=== PATIENT | male | born 1980 | race Caucasian/White ===

== ENCOUNTER 2018-06-23 16:25 | Inpatient (IN) | payer OTHER ==
[~2018-06-23] VITALS: Ht 177.8 cm; Wt 97.0 kg
[2018-06-23 17:21] LABS: BASOPHILS # (AUTO) 0.04 x10^3/uL (0-0.1); BASOPHILS % (AUTO) 1 % (0-1); EOSINOPHILS # (AUTO) 0.04 x10^3/uL (0-0.4); EOSINOPHILS % (AUTO) 1 % (1-7); LYMPHOCYTES # (AUTO) 1.01 x10^3/uL (1-3.4); LYMPHOCYTES % (AUTO) 12 % (22-44); MD NO; MEAN CORPUSCULAR HEMOGLOBIN 31.1 pg (27.5-34.5); MEAN CORPUSCULAR HGB CONC 34.6 g/dL (33.2-36.2); MEAN PLATELET VOLUME 9.4 fL (7.4-10.4); MONOCYTES # (AUTO) 0.52 x10^3/uL (0.2-0.8); MONOCYTES % (AUTO) 6 % (2-9); NEUTROPHILS # (AUTO) 7.12 x10^3/uL (1.8-6.8); NEUTROPHILS % (AUTO) 82 % (42-75); PLATELET COUNT 210 x10^3/uL (130-400); RED BLOOD COUNT 5.14 x10^6/uL (4.38-5.82)
[2018-06-23 17:27] LABS: ALANINE AMINOTRANSFERASE 42 U/L (12-78); ALBUMIN 4.3 g/dL (3.4-5.0); ANION GAP 12 mmol/L (5-15); CALCIUM 8.9 mg/dL (8.5-10.1); CHLORIDE 101 mmol/L (98-107); CREATININE 2.17 mg/dL (0.7-1.3)
[2018-06-23 17:30] LABS: ALKALINE PHOSPHATASE 65 U/L (45-117); BILIRUBIN,TOTAL 0.9 mg/dL (0.2-1.0)
[2018-06-23] MEDS ORDERED: LABETALOL 20 MG/4 ML ONE (17:38)
[2018-06-23] MEDS ORDERED: SODIUM CHLORIDE FLUSH 10ML SYR IVF ONE (18:00)
[2018-06-23] MEDS ORDERED: NS + 40MEQ KCL 1,000 ML IV ONE ×2 (18:00→18:14)
[2018-06-23] MEDS ORDERED: POTASSIUM CHLORIDE 20 MEQ TAB.ER.PRT PO ONE (18:00)
[2018-06-23] MEDS ORDERED: LABETALOL 5MG/ML, 20ML IVPush ONE (18:00)
[2018-06-23 18:03] LABS: TROPONIN I 0.049 ng/mL (0.000-0.045)
[2018-06-23] MEDS ORDERED: POTASSIUM CHLORIDE 20 MEQ TAB.ER.PRT ONE (18:14)
[2018-06-23] MEDS ORDERED: ASPIRIN 81 MG TABLET CHEW PO ONE (18:30)
[2018-06-23] MEDS ORDERED: hydrALAzine 20 MG/ML, 1ML ONE (18:47)
[2018-06-23] MEDS ORDERED: ASPIRIN 81 MG TABLET CHEW ONE (18:47)
[2018-06-23] MEDS ORDERED: SODIUM CHLORIDE FLUSH 10ML SYR IVF PRN (19:00)
[2018-06-23] MEDS ORDERED: hydrALAzine 20 MG/ML, 1ML IV ONE (19:00)
[2018-06-23] MEDS ORDERED: LABETALOL 5MG/ML, 20ML IVPush PRN (21:00)
[2018-06-23] MEDS ORDERED: ONDANSETRON 2MG/ML, 2ML IVPush PRN (21:00)
[2018-06-23] MEDS ORDERED: morphine SULFATE 10 MG/ML, 1ML IVPush PRN (21:00)
[2018-06-23] MEDS ORDERED: DOCUSATE 100 MG CAPSULE PO PRN (21:00)
[2018-06-23] MEDS ORDERED: ACETAMINOPHEN 325 MG TABLET PO PRN (21:00)
[2018-06-23] MEDS ORDERED: OXYcodone IR 5MG TABLET PO PRN (21:00)
[2018-06-23] MEDS ORDERED: POTASSIUM CHLORIDE 40 MEQ in SODIUM CHLORIDE 0.9% 500 ML IV ONE (21:00)
[2018-06-23] MEDS ORDERED: PROMETHAZINE 25 MG/ML, 1ML IM PRN (21:00)
[2018-06-23] MEDS ORDERED: ONDANSETRON ODT 4 MG PO PRN (21:00)
[2018-06-23] MEDS ORDERED: POLYETHYLENE GLYCOL 17 GM PACKET PO PRN (21:00)
[2018-06-23] MEDS ORDERED: BISACODYL 10 MG SUPP PR PRN (21:00)
[2018-06-23] MEDS: ISOSORBIDE DINITRATE 10 MG TABLET PO SCH (21:30)
[2018-06-23] MEDS: CARVEDILOL 6.25 MG TABLET PO SCH (21:30)
[2018-06-23 21:32] LABS: FREE T4 (FREE THYROXINE) 1.21 ng/dL (0.76-1.46); THYROID STIMULATING HORMONE 1.26 mIU/L (0.358-3.740)
[2018-06-23 21:34] VITALS: BP 219/138
[2018-06-23] MEDS: hydrALAzine 20 MG/ML, 1ML IVPush PRN (21:39)
[2018-06-23 21:45] LABS: HEMOGLOBIN A1C 5.2 % (4.2-6.3)
[2018-06-23 22:19] VITALS: BP 160/93
[2018-06-23 22:23] LABS: MICROSCOPIC AUTO
[2018-06-23 22:25] LABS: CULTURE INDICATED? NO
[2018-06-23 22:33] LABS: TROPONIN I 0.069 ng/mL (0.000-0.045)
[2018-06-24 01:17] VITALS: BP_SYST 137; BP_SYST 153; BP_DIAS 91; BP_DIAS 99
[2018-06-24 05:20] VITALS: BP 190/121
[2018-06-24] MEDS ORDERED: LABETALOL 20 MG/4 ML ONE (05:29)
[2018-06-24 05:34] LABS: ALBUMIN 3.6 g/dL (3.4-5.0); ANION GAP 11 mmol/L (5-15); CALCIUM 8.7 mg/dL (8.5-10.1); CHLORIDE 106 mmol/L (98-107)
[2018-06-24] MEDS: CARVEDILOL 6.25 MG TABLET PO SCH ×2 (05:36→18:49)
[2018-06-24 05:40] LABS: BASOPHILS # (AUTO) 0.04 x10^3/uL (0-0.1); BASOPHILS % (AUTO) 0 % (0-1); EOSINOPHILS # (AUTO) 0.04 x10^3/uL (0-0.4); EOSINOPHILS % (AUTO) 1 % (1-7); LYMPHOCYTES # (AUTO) 1.02 x10^3/uL (1-3.4); LYMPHOCYTES % (AUTO) 12 % (22-44); MD NO; MEAN CORPUSCULAR HEMOGLOBIN 30.7 pg (27.5-34.5); MEAN CORPUSCULAR HGB CONC 34.4 g/dL (33.2-36.2); MEAN CORPUSCULAR VOLUME 89.3 fL (81-97); MEAN PLATELET VOLUME 9.9 fL (7.4-10.4); MONOCYTES # (AUTO) 0.56 x10^3/uL (0.2-0.8); MONOCYTES % (AUTO) 7 % (2-9); NEUTROPHILS # (AUTO) 6.72 x10^3/uL (1.8-6.8); NEUTROPHILS % (AUTO) 80 % (42-75); PLATELET COUNT 178 x10^3/uL (130-400); RED BLOOD COUNT 4.43 x10^6/uL (4.38-5.82); RED CELL DISTRIBUTION WIDTH 13.1 % (9.4-14.8)
[2018-06-24 05:42] LABS: ALKALINE PHOSPHATASE 49 U/L (45-117); BILIRUBIN,TOTAL 0.8 mg/dL (0.2-1.0); CHOL/HDL RATIO 3.9; CHOLESTEROL, TOTAL 144 mg/dL (140-239); CREATININE 1.96 mg/dL (0.7-1.3); HDL CHOL % 26 % (26-37); HDL CHOLESTEROL (DIRECT) 37 mg/dL (40-60); LDL CHOLESTEROL,CALCULATED 88 mg/dL (54-169); LDL/HDL RATIO 2.4 (0.5-3.0); TOTAL PROTEIN 6.7 g/dL (6.4-8.2); TRIGLYCERIDES 93 mg/dL (50-200); TROPONIN I 0.106 ng/mL (0.000-0.045); VLDL CHOLESTEROL 19 mg/dL (0-25)
[2018-06-24 05:48] LABS: ALANINE AMINOTRANSFERASE 31 U/L (12-78)
[2018-06-24] MEDS ORDERED: CARVEDILOL 12.5 MG TABLET PO SCH (06:30)
[2018-06-24 06:31] VITALS: BP 170/109
[2018-06-24] MEDS: hydrALAzine 20 MG/ML, 1ML IVPush PRN (06:39)
[2018-06-24] MEDS: ISOSORBIDE DINITRATE 10 MG TABLET PO SCH (08:43)
[2018-06-24] MEDS ORDERED: LISINOPRIL 5 MG TABLET PO SCH ×2 (09:00→21:00)
[2018-06-24 11:50] LABS: TROPONIN I 0.087 ng/mL (0.000-0.045)
[2018-06-24 13:31] VITALS: BP 144/75
[2018-06-24] MEDS: SPIRONOLACTONE 25 MG TABLET PO SCH ×2 (14:38→19:59)
[2018-06-24 15:01] LABS: TROPONIN I 0.083 ng/mL (0.000-0.045)
[2018-06-24 15:09] LABS: MICROSCOPIC NOT IND
[2018-06-24 19:59] VITALS: BP 121/68
[2018-06-24] MEDS: LISINOPRIL 20 MG TABLET PO SCH (19:59)
[2018-06-25] VITALS (9 sets, daily range): BP systolic 126–181; BP diastolic 76–105
[2018-06-25 04:57] LABS: BASOPHILS # (AUTO) 0.22 x10^3/uL (0-0.1); BASOPHILS % (AUTO) 3 % (0-1); EOSINOPHILS # (AUTO) 0.26 x10^3/uL (0-0.4); EOSINOPHILS % (AUTO) 3 % (1-7); LYMPHOCYTES # (AUTO) 1.66 x10^3/uL (1-3.4); LYMPHOCYTES % (AUTO) 19 % (22-44); MD NO; MEAN CORPUSCULAR HGB CONC 34.4 g/dL (33.2-36.2); MEAN PLATELET VOLUME 9.6 fL (7.4-10.4); MONOCYTES # (AUTO) 0.84 x10^3/uL (0.2-0.8); MONOCYTES % (AUTO) 10 % (2-9); NEUTROPHILS # (AUTO) 5.79 x10^3/uL (1.8-6.8); NEUTROPHILS % (AUTO) 66 % (42-75); PLATELET COUNT 178 x10^3/uL (130-400); RED BLOOD COUNT 4.17 x10^6/uL (4.38-5.82); RED CELL DISTRIBUTION WIDTH 12.9 % (9.4-14.8)
[2018-06-25 05:12] LABS: ALANINE AMINOTRANSFERASE 27 U/L (12-78); ALBUMIN 3.2 g/dL (3.4-5.0); ANION GAP 10 mmol/L (5-15); CALCIUM 8.3 mg/dL (8.5-10.1); CHLORIDE 106 mmol/L (98-107); CREATININE 2.36 mg/dL (0.7-1.3)
[2018-06-25 05:14] LABS: ALKALINE PHOSPHATASE 47 U/L (45-117); BILIRUBIN,TOTAL 0.6 mg/dL (0.2-1.0)
[2018-06-25] MEDS: CARVEDILOL 6.25 MG TABLET PO SCH (06:01)
[2018-06-25] MEDS ORDERED: POTASSIUM CHLORIDE 20 MEQ TAB.ER.PRT PO ONE (06:30)
[2018-06-25] MEDS: LISINOPRIL 20 MG TABLET PO SCH ×2 (07:47→21:00)
[2018-06-25] MEDS: SPIRONOLACTONE 25 MG TABLET PO SCH ×2 (07:47→21:00)
[2018-06-25] MEDS ORDERED: ENALAPRILAT 1.25 MG/ML, 2ML IV ONE (21:00)
[2018-06-25] MEDS: hydrALAzine 20 MG/ML, 1ML IV PRN (22:58)
[2018-06-26] VITALS (8 sets, daily range): BP systolic 159–174; BP diastolic 89–117
[2018-06-26] MEDS ORDERED: LABETALOL 5MG/ML, 20ML IVPush ONE (01:00)
[2018-06-26 05:15] LABS: ALBUMIN 3.5 g/dL (3.4-5.0); ANION GAP 7 mmol/L (5-15); CHLORIDE 107 mmol/L (98-107); CREATININE 2.12 mg/dL (0.7-1.3)
[2018-06-26] MEDS ORDERED: POTASSIUM CHLORIDE 20 MEQ TAB.ER.PRT PO ONE (07:00)
[2018-06-26] MEDS: SPIRONOLACTONE 25 MG TABLET PO SCH ×2 (08:00→20:08)
[2018-06-26] MEDS: LISINOPRIL 20 MG TABLET PO SCH ×2 (08:00→20:09)
[2018-06-26] MEDS ORDERED: CARVEDILOL 6.25 MG TABLET PO SCH (09:00)
[2018-06-26] MEDS: CARVEDILOL 6.25 MG TABLET PO SCH (18:29)
[2018-06-26] MEDS: hydrALAzine 20 MG/ML, 1ML IV PRN (20:14)
[2018-06-27] VITALS (7 sets, daily range): BP systolic 151–171; BP diastolic 82–116
[2018-06-27] MEDS: hydrALAzine 20 MG/ML, 1ML IV PRN (04:49)
[2018-06-27] MEDS: CARVEDILOL 6.25 MG TABLET PO SCH (04:49)
[2018-06-27 05:25] LABS: ANION GAP 6 mmol/L (5-15); CALCIUM 8.3 mg/dL (8.5-10.1); CHLORIDE 109 mmol/L (98-107); CREATININE 1.98 mg/dL (0.7-1.3)
[2018-06-27] MEDS ORDERED: POTASSIUM CHLORIDE 20 MEQ PACKET PO SCH (08:00)
[2018-06-27] MEDS: SPIRONOLACTONE 25 MG TABLET PO SCH (08:28)
[2018-06-27] MEDS ORDERED: LISINOPRIL 20 MG TABLET PO SCH (09:00)
[2018-06-27] MEDS ORDERED: POTA20PA25 PO (10:37)
[2018-06-27] MEDS ORDERED: LISI-170 PO (10:37)
[2018-06-27] MEDS ORDERED: SPIR50TA4 PO (10:37)
[2018-06-27] MEDS ORDERED: CARV6.2512 PO (10:37)
== END 2018-06-27 14:30 | disposition home or self-care (01) | DRG 305 ==
LOC: ED 19:14 → EDIP 19:20 → 5SO 20:22 → 3NE 06-25 16:13
PROVIDERS: ADMIT Internal Medicine; ATTEND Internal Medicine
DX: I16.0 Hypertensive urgency (principal); N17.9 Acute kidney failure, unspecified; E66.9 Obesity, unspecified; Z68.30 Body mass index [BMI] 30.0-30.9, adult; E87.6 Hypokalemia; E27.8 Other specified disorders of adrenal gland; G43.909 Migraine, unspecified, not intractable, without status migrainosus; N18.3 Chronic kidney disease, stage 3 (moderate); E79.0 Hyperuricemia without signs of inflammatory arthritis and tophaceous disease; I12.9 Hypertensive chronic kidney disease with stage 1 through stage 4 chronic kidney disease, or unspecified chronic kidney disease; K40.90 Unilateral inguinal hernia, without obstruction or gangrene, not specified as recurrent; J32.0 Chronic maxillary sinusitis; I51.7 Cardiomegaly; T39.395A Adverse effect of other nonsteroidal anti-inflammatory drugs [NSAID], initial encounter; Z82.49 Family history of ischemic heart disease and other diseases of the circulatory system; Z91.14 Patient's other noncompliance with medication regimen
CPT/HCPCS: 36415; 70450; 71045; 74176; 76770; 80048; 80053; 80061; 80069; 81001; 81003; 82088; 82436; 82533; 82570; 83036; 83735; 83880; 84100; 84133; 84156; 84244; 84300; 84439; 84443; 84484; 84550; 85025; 93005; 93306; 96374; 96375; 99285; G0378; J3480; Q0162; J0360; J7040